=== PATIENT | male | born 1970 | race Caucasian/White ===

== ENCOUNTER 2020-05-21 09:30 | Inpatient (IN) ==
[2020-06-05 13:28] LABS: Appearance,Urine CLEAR; Bilirubin,Urine NEG (NEG); Color,Urine STRAW; Culture Indicated,Urine NO; Glucose,Urine (UA) NEGATIVE (NEG); Ketones,Urine NEG (NEG); Leukocyte Esterase,Urine NEG /uL (NEG); Nitrate,Urine NEG (NEG); Protein,Urine NEG (NEG); Urine Blood NEG mg/dL (<0.03); Urobilinogen,Urine NEG (NEG)
[2020-06-05 14:15] LABS: Basophils # (Auto) 0.04 K/mcL (0.00-0.30); Basophils % (Auto) 0.5 % (0.0-2.0); Eosinophils # (Auto) 0.09 K/mcL (0.00-0.70); Eosinophils % (Auto) 1.2 % (0.0-7.0); Granulocytes % (Auto) 59.4 % (38.0-78.0); Hematocrit 43.4 % (40.1-51.0); Hemoglobin 14.8 g/dL (13.7-17.5); Lymphocytes # (Auto) 2.32 K/mcL (1.50-4.80); Lymphocytes % (Auto) 30.8 % (15.5-49.0); Mean Cell Volume 90.2 fL (80.0-100.0); Mean Corpuscular HGB Conc 34.1 g/dL (31.0-36.0); Mean Platelet Volume 9.8 fL (7.4-10.4); Monocytes # (Auto) 0.61 K/mcL (0.10-0.90); Monocytes % (Auto) 8.1 % (1.0-12.0); Platelet Count 282 K/mcL (140-440); RBC 4.81 M/mcL (4.63-6.08); Red Cell Distribution Width 11.9 % (11.5-14.5); WBC 7.5 K/mcL (4.50-11.00)
[2020-06-05 14:24] LABS: Blood Urea Nitrogen 24 mg/dl (6-20); Calcium 9.9 mg/dl (8.6-10.4); Carbon Dioxide 24 mmol/L (22-30); Chloride 104 mmol/L (96-108); Glomerular Filtration Rate 99; Glucose 97 mg/dL (70-105)
[2020-06-05 14:42] LABS: Estimated Average Glucose(eAG) 111 mg/dL; Hemoglobin A1C 5.5 % HGB (4.0-6.0)
[2020-06-11] MEDS ORDERED: IPRATROPIUM/ALBUTEROL 3 ML AMPUL.NEB NEB PRN ×2 (05:00→18:00)
[2020-06-11] MEDS ORDERED: SCOPOLAMINE 1 PATCH PATCH TOPICAL PRN (05:00)
[2020-06-11] MEDS ORDERED: ceFAZolin 2 GM in DEXTROSE 5% IN WATER 50 ML IV SCH ×2 (06:00→21:00)
[2020-06-11] MEDS ORDERED: PREGABALIN 75 MG CAPSULE PO SCH (06:00)
[2020-06-11] MEDS ORDERED: CELECOXIB 200 MG CAPSULE PO SCH (06:00)
[2020-06-11] MEDS ORDERED: oxyCODONE 10 MG TAB.ER.12H PO SCH (06:00)
[2020-06-11] MEDS ORDERED: fentaNYL 250 MCG/5 ML VIAL IV ONE (15:17)
[2020-06-11] MEDS ORDERED: ROPIVACAINE HCL/PF 30 ML VIAL IJ ONE (15:17)
[2020-06-11] MEDS ORDERED: DEXAMETHASONE 10 MG/ML VIAL IV ONE (15:17)
[2020-06-11] MEDS ORDERED: TRANEXAMIC ACID 1,000 MG/10 ML VIAL IV ONE (15:17)
[2020-06-11] MEDS ORDERED: HYDROmorphone 1 MG/ML SYRINGE IV ONE (15:17)
[2020-06-11] MEDS ORDERED: KETAMINE 100 MG/ML ML IV ONE (15:17)
[2020-06-11] MEDS ORDERED: GLYCOPYRROLATE 0.2 MG/ML VIAL IV ONE (15:17)
[2020-06-11] MEDS ORDERED: PROPOFOL 200 MG/20 ML VIAL IV ONE (15:17)
[2020-06-11] MEDS ORDERED: SUCCINYLCHOLINE 20 MG/ML ML IV ONE (15:17)
[2020-06-11] MEDS ORDERED: LIDOCAINE HCL/PF 100 MG/5 ML SYRINGE IV ONE (15:17)
[2020-06-11] MEDS ORDERED: diphenhydrAMINE 50 MG/ML VIAL IV PRN (18:00)
[2020-06-11] MEDS ORDERED: LACTATED RINGERS 250 ML IV PRN (18:00)
[2020-06-11] MEDS ORDERED: MEPERIDINE 25 MG/ML SYRINGE IV PRN (18:00)
[2020-06-11] MEDS ORDERED: LACTATED RINGERS 1,000 ML IV SCH (18:00)
[2020-06-11] MEDS ORDERED: PROMETHAZINE 25 MG/ML VIAL IV PRN (18:00)
[2020-06-11] MEDS ORDERED: HYDROmorphone 0.5 MG/0.5 ML SYRINGE IV PRN (18:00)
[2020-06-11] MEDS ORDERED: ONDANSETRON 4 MG/2 ML VIAL IV PRN ×2 (18:00→20:46)
[2020-06-11] MEDS ORDERED: ACETAMINOPHEN 1,000 MG/100 ML BOTTLE IV ONE (18:00)
[2020-06-11] MEDS ORDERED: NALOXONE HCL 0.4 MG/ML VIAL IV PRN (18:00)
[2020-06-11] MEDS ORDERED: fentaNYL 100 MCG/2 ML VIAL IV PRN (18:00)
[2020-06-11] MEDS ORDERED: GUM MASTIC/STORAX/MSAL/ALCOHOL 1 DOSE DROPERETTE TOPICAL ONE (19:15)
--- NOTE | 2020-06-11 20:41 | Brief Operative Note ---
Brief Operative Note Date of procedure: 06/11/20 Pre-op diagnosis: left shoulder arthritis Post-op diagnosis: same Procedure: left total shoulder arthroplasty Grafts/Implants: Yes Anesthesia: GETA and regional Findings: severe OA Complications: none Surgeon: Teresa Wellington Estimated blood loss (cc): 150 Specimens Removed/Pathology: none sent Condition: stable Disposition: floor
[2020-06-11] MEDS ORDERED: HYDROmorphone 1 MG/ML SYRINGE IV PRN (20:46)
[2020-06-11] MEDS ORDERED: METHOCARBAMOL 750 MG TABLET PO PRN (20:46)
[2020-06-11] MEDS ORDERED: POLYETHYLENE GLYCOL 3350 17 GM PACKET PO PRN (20:46)
[2020-06-11] MEDS: LACTATED RINGERS 1,000 ML IV SCH (21:00)
[2020-06-11] MEDS ORDERED: ACETAMINOPHEN 1,000 MG/100 ML BOTTLE IV SCH (21:00)
[2020-06-11] MEDS ORDERED: DEXTROSE 31 GM ORAL.SUSP PO PRN (21:00)
[2020-06-11] MEDS ORDERED: DEXTROSE 50% 50 ML VIAL IV PRN (21:00)
[2020-06-11] MEDS: INSULIN LISPRO 1 UNIT/0.01 ML UNIT SQ SCH (22:11)
[2020-06-11] MEDS: DOCUSATE SODIUM 100 MG CAPSULE PO SCH (22:11)
[2020-06-11] MEDS: busPIRone 15 MG TABLET PO SCH (22:11)
[2020-06-11] MEDS: TOPIRAMATE 25 MG TABLET PO SCH (22:12)
[2020-06-11] MEDS: 0.9 % SODIUM CHLORIDE 10 ML SYRINGE IV SCH (22:12)
[2020-06-11] MEDS: GABAPENTIN 300 MG CAPSULE PO SCH (22:12)
[2020-06-11] MEDS: ceFAZolin 1 GM VIAL IV SCH (22:26)
[2020-06-11] MEDS: oxyCODONE HCL 5 MG TABLET PO PRN (23:41)
[2020-06-12] MEDS: oxyCODONE HCL 5 MG TABLET PO PRN ×3 (03:00→10:58)
[2020-06-12] MEDS: 0.9 % SODIUM CHLORIDE 10 ML SYRINGE IV SCH (05:22)
[2020-06-12] MEDS: ceFAZolin 1 GM VIAL IV SCH (05:53)
--- NOTE | 2020-06-12 06:06 | XRay Report ---
INDICATION: left shoulder replacement TECHNIQUE: AP and axillary views of the left shoulder COMPARISON: Preoperative evaluation dated 02/15/2020 FINDINGS: Status post left shoulder arthroplasty. Alignment is anatomic. There is a plate at the rotator footprint. There are skin king overlying the left shoulder. IMPRESSION: Status post left shoulder arthroplasty Interpreted and Authenticated by: Deonte Santana 06/12/20
--- NOTE | 2020-06-12 07:28 | Orthopedic Progress Note ---
SUBJECTIVE Subjective Patient information: Note initiated : 06/12/20 at 7:22 am Service Date, if different from initiated Date: [] Patient: Nicholas Raymundo 49 y/o M admitted on 06/11/20 for Left Total Shoulder Arthroplasty. Chief Complaint: [] Interval history: Narrative:No acute events overnight. Block is working. No chest pain/shortness of breath. Has been voiding. Constitutional Vitals: Vital Signs Temp Pulse Resp BP Pulse Ox 98.3 F 60 18 104/61 97 06/12/20 06:58 06/12/20 06:58 06/12/20 06:58 06/12/20 06:58 06/12/20 06:58 Period Temp Pulse Resp BP Sys/Soriano Pulse Ox Last 24 Hr 97.5 F-98.3 F 53-103 12-18 86-121/50-87 91-100 Intake and Output 06/11/20 06/12/20 06/12/20 21:59 05:59 13:59 Intake Total 350 Output Total 325 450 Balance 25 -450 Weight 214 lb 3 oz Intake & Output: Intake & Output 06/11/20 06/12/20 06/12/20 21:59 05:59 13:59 Intake Total 350 Output Total 325 450 Balance 25 -450 Weight 214 lb 3 oz Intake: Oral 350 Output: Void Amount 325 450 Other: Meal Jello Percent of Meal Consumed 100% Feeding Ability Independent Urine Appearance Clear Urine Color Bright Yellow General: awake, alert and oriented. Left shoulder: silver dressing in place. Dry without strikethrough. Block is working with decreased sensation throughout hand. can weakly make a fist. Difficulty making a flat hand. Hand is warm well perfused. OBJ DATA Labs CBC & Chem 7: 06/05/20 11:48 06/05/20 11:48 Meds: Medications Buspirone HCl (Buspar) 15 mg PO BID [facility] Last Admin: 06/11/20 22:11 Dose: Not Given Documented by: Dextrose (Dextrose 50%) 0 ml IV UD PRN PRN Reason: Hypoglycemia Diagnostic Test (Pha) (Accu-Chek) 1 each FS ACHS [facility] Last Admin: 06/11/20 22:10 Dose: 1 each Documented by: Docusate Sodium (Colace) 100 mg PO BID [facility] Last Admin: 06/11/20 22:11 Dose: Not Given Documented by: Gabapentin (Neurontin) 300 mg PO BID [facility] Last Admin: 06/11/20 22:12 Dose: Not Given Documented by: Glucose (Insta-Glucose) 15 gm PO PRN PRN PRN Reason: Hypoglycemia Hydromorphone HCl (Dilaudid) 0.5 mg IV Q15MIN PRN; Protocol PRN Reason: Per Pain Protocol Hydromorphone HCl (Dilaudid) 0 mg IV Q2HP PRN; Protocol PRN Reason: Per Pain Protocol Last Admin: 06/11/20 21:45 Dose: 0.5 mg Documented by: Lactated Ringer's (Lactated Ringers) 1,000 mls @ 75 mls/hr IV .[id number] [facility] Last Admin: 06/11/20 21:00 Dose: 75 mls/hr Documented by: Acetaminophen (Ofirmev) 1,000 mg in 100 mls @ 200 mls/hr IV Q8HP [facility]; Protocol Insulin Human Lispro (Humalog) 0 unit SQ ACHS [facility]; Protocol Last Admin: 06/11/20 22:11 Dose: Not Given Documented by: Lisinopril (Zestril) 5 mg PO DAILY [facility] Methocarbamol (Robaxin) 750 mg PO Q6HP PRN PRN Reason: Muscle Spasm Ondansetron HCl (Zofran) 4 mg IV Q4HP PRN; Protocol PRN Reason: Nausea And Vomiting Last Admin: 06/11/20 22:30 Dose: 4 mg Documented by: Oxycodone HCl (Roxicodone) 0 mg PO Q4HP PRN; Protocol PRN Reason: Per Pain Protocol Last Admin: 06/12/20 05:54 Dose: 1 mg Documented by: Lamotrigine [ (Lamictal Xr] 200 Mg) 1 dose PO DAILY [facility] Lisdexamfetamine [ (Vyvanse] 50 Mg)) 1 dose PO QDAY [facility] Polyethylene Glycol (Miralax) 17 gm PO DAILYP PRN PRN Reason: Constipation Rosuvastatin Calcium (Crestor) 5 mg PO QDAY [facility] Scopolamine (Transderm-Scop) 1 patch TOPICAL PREOP PRN PRN Reason: Nausea And Vomiting Sodium Chloride (Saline Flush) 10 ml IV Q8 [facility] Last Admin: 06/12/20 05:22 Dose: Not Given Documented by: Topiramate (Topamax) 25 mg PO BID [facility] Last Admin: 06/11/20 22:12 Dose: Not Given Documented by: A/P Assessment and plan (1) Shoulder arthritis: Status: Acute Comment: POD 1 s/p left total shoulder arthroplasty. -- Doing well this AM --- work with PT this AM -- monitor pain as block wears off this AM. ---- oral pain medications -- prophy: asa, IS, ambulation, abx -- dispo: likely d/c home later today Time Spent With Patient Time: Total time spent is greater than 50% in coordination of care (as documented) at patient's floor/unit and/or counseling patient:
--- NOTE | 2020-06-12 07:34 | Discharge Summary ---
Discharge Provider Provider Patient information: Note initiated : 06/12/20 at 7:29 am Service Date, if different from initiated Date: [] Patient: Nicholas Raymundo 49 y/o M admitted on 06/11/20 for Left Total Shoulder Arthroplasty. Chief Complaint: [left shoulder arthritis - left total shoulder replacement] Date of admission: 06/11/20 04:56 Discharge date: 06/12/20 Primary care physician: Mundo Ward COURSE Hospital Course Discharge diagnosis: left shoulder arthritis Time Spent with Patient Time attestation: Patient admitted on 11 Jun 2020 for planned left total shoulder arthroplasty. Procedure completed without complication and transferred to the floor for routine post operative recovery. Patient did well. Pain was controlled with a peripheral block along with oral pain medications. He tolerated an oral diet, able to void spontaneously, restarted on home medications and was hemodynamically stable. Physical Examination Exam Incision healing: Yes Incision draining: No Incision red: No Incision inflamed: No Clean and dry: Yes Weight bearing status: none Range of motion: defferred Discharge Instructions - TSA Patient Instructions Total Shoulder Protocol: Leave immobilizer in place except for bathing and ROM. Abduction pillow. Continue to wear sling until seen by physician. Codman Pendulum : These exercises use momentum produced by your body to move your shoulder joint. Bend your knees and shift your weight to your front leg, then back, allowing your arm to swing in the same directions. Using the same technique, alternately shift your weight between your right and left legs, allowing your arm to swing from side to side. These exercises are also performed in counterclockwise and clockwise circular motions. Typically these exercises are performed several times per day, for a set number repetitions or minutes, such as 20 times in a row or 5 minutes at a time. Leave dressing in place until your follow up with orthopedics unless it is becoming loose. OK to shower with dressing in place but do not submerge in water such as a bath or hot tub. If current dressing does become loose, do not get incision wet until your follow up with orthopedics. Ice your shoulder regularly for 15-20 minutes every 3-4 hours as it will help with swelling and pain. Discharge Plan Patient/Caregiver Discharge Instructions Activity: non-weight bearing Diet: Consistent Carbohydrate Instructions: Shoulder Arthroplasty (DC) Prescriptions: New methocarbamol 750 mg Tablet 750 mg PO Q6HP PRN (Reason: Muscle Spasm) Qty: 20 RF: 0 docusate sodium 100 mg Capsule 100 mg PO BID Qty: 60 RF: 0 gabapentin 300 mg Capsule 300 mg PO BID Qty: 30 RF: 0 aspirin 81 mg tablet,chewable 81 mg PO BID Qty: 60 RF: 0 acetaminophen [Tylenol Extra Strength] 500 mg tablet 1,000 mg PO Q8 Qty: 60 RF: 0 Continued Vyvanse 50 mg capsule 50 mg PO QDAY RF: 0 tadalafil [Cialis] 5 mg tablet 5 mg PO QDAY Qty: 30 RF: 3 metformin 500 mg tablet extended release 24 hr 500 mg PO QDAY Qty: 90 RF: 1 rosuvastatin [Crestor] 10 mg tablet 5 mg PO QDAY RF: 0 lamotrigine [Lamictal XR] 200 mg tablet extended release 24hr 200 mg PO DAILY RF: 0 buspirone 15 mg tablet 15 mg PO BID RF: 0 topiramate [Topamax] 25 mg tablet 25 mg PO BID RF: 0 lisinopril 5 mg tablet 5 mg PO DAILY RF: 0 Follow Up Plan Follow up with: Power Fay PA-C [Physician Snailer] - Patient Disposition: Home, Self-Care Rehab Potential: Good I certify that the patient requires SNF services: No Overall status at discharge: patient is progressing back to baseline Discharge Orders: Discharge Order (Routine); Ordered 06/12/20 Ordered By: Teresa Wellington Pending Pending Pending: Resuscitation Status Full Code Diet Regular Diet Start WedJun 11 1746 Buspirone HCl (Buspar) 15 mg PO BID [facility] Last Admin: 06/11/20 22:11 Dose: Not Given Documented by: VON Diagnostic Test (Pha) (Accu-Chek) 1 each FS ACHS [facility] Last Admin: 06/11/20 22:10 Dose: 1 each Documented by: VON Docusate Sodium (Colace) 100 mg PO BID [facility] Last Admin: 06/11/20 22:11 Dose: Not Given Documented by: VON Gabapentin (Neurontin) 300 mg PO BID [facility] Last Admin: 06/11/20 22:12 Dose: Not Given Documented by: VON Hydromorphone HCl (Dilaudid) 0 mg IV Q2HP PRN; Protocol PRN Reason: Per Pain Protocol Last Admin: 06/11/20 21:45 Dose: 0.5 mg Documented by: VON Lactated Ringer's (Lactated Ringers) 1,000 mls @ 75 mls/hr IV .[id number] [facility] Last Admin: 06/11/20 21:00 Dose: 75 mls/hr Documented by: VON Insulin Human Lispro (Humalog) 0 unit SQ ACHS [facility]; Protocol Last Admin: 06/11/20 22:11 Dose: Not Given Documented by: VON Ondansetron HCl (Zofran) 4 mg IV Q4HP PRN; Protocol PRN Reason: Nausea And Vomiting Last Admin: 06/11/20 22:30 Dose: 4 mg Documented by: VON Oxycodone HCl (Roxicodone) 0 mg PO Q4HP PRN; Protocol PRN Reason: Per Pain Protocol Last Admin: 06/12/20 05:54 Dose: 1 mg Documented by: Admin: 06/12/20 03:00 Dose: 5 mg Documented by: Admin: 06/11/20 23:41 Dose: 5 mg Documented by: VON Sodium Chloride (Saline Flush) 10 ml IV Q8 [facility] Last Admin: 06/12/20 05:22 Dose: Not Given Documented by: Admin: 06/11/20 22:12 Dose: Not Given Documented by: VON Topiramate (Topamax) 25 mg PO BID [facility] Last Admin: 06/11/20 22:12 Dose: Not Given Documented by: VON Shift Summary 06/12/20 04:06 Shift Summary by Dipika Burnham Pt returned from surg around 2100. Pt is up with SBA to bathroom voiding via urinal. Voided 325 with PRV of 480 at 0330. Pt taking Oxy one tab x2 for pain. Had nausea early on which resolved with Zofran. Pt has tolerated applesauce, jell-o and water at this time. IV infusing. Last abo due at 0600. Immobilizer and SCD's in place. Will update with verbal report. Initialized on 06/12/20 04:06 - END OF NOTE
--- NOTE | 2020-06-12 07:56 | Operative Note ---
DATE OF OPERATION: 06/11/2020 PREOPERATIVE DIAGNOSIS: Left shoulder [id number] osteoarthritis. POSTOPERATIVE DIAGNOSIS: Left shoulder qhyy-zu-ahnz osteoarthritis. PROCEDURE PERFORMED: 1. Left total shoulder arthroplasty. 2. Left shoulder biceps tenodesis. SURGEON: Teresa Wellington M.D. HOURLY SHIFT MANAGER: Power Fay PA-C. This provider's expertise and technical skill were required throughout the case. The PA assisted with preoperative coordination, intraoperative retraction, wound closure, dressing and splint application, as well as postoperative documentation and care coordination. ANESTHESIA: General with peripheral nerve block. IV FLUIDS: 2800 mL lactated ringer. ESTIMATED BLOOD LOSS: 150 mL TOURNIQUET TIME: Non-applicable. ANTIBIOTICS: 2 grams Ancef, redosed x1 at the end of the case. IMPLANTS: 1. 1/4 lock glenoid with a 25-degree posterior augment size large. 2. Humeral head is a 52 x 19 mm with a size 3 nucleus. PATHOLOGY: None; however, we excised and discarded the proximal portion of the biceps tendon itself. INTRAOPERATIVE COMPLICATIONS: None apparent. INDICATIONS: The patient is a 49-year-old male who has bilateral severe [id number] shoulder osteoarthritis. He has been treated in conservative manner for quite some time; however, his function continues to decrease and his pain is increasing, affecting his sleeping as well as daily functions. We discussed at length options for treatment to include total shoulder arthroplasty. I did discuss, given the degree of bone deformity, I would do a template version for him and reviewed this with him at length. We discussed the risks of the surgery as well as the postoperative expectations and outcomes. Given this, he does want to proceed with surgery. DESCRIPTION OF PROCEDURE: The patient was brought to the preoperative holding area. Site was verified with marker with patient's input. He was subsequently taken back to the operating room where he underwent successful anesthesia via endotracheal tube. He was placed in a beach chair position with bilateral lower extremity sequential compression device in place. His right upper extremity was draped across his lap and padded and secured. The left upper extremity was then prepped and draped in the usual sterile fashion with ChloraPrep. A surgical timeout was performed to verify patient identity, correct procedure being performed, and correct extremity being operated on, and everybody was in agreement. I created a deltopectoral incision from the coracoid process distally along the deltopectoral interval approximately 10 to 12 cm in overall length. Skin was sharply incised. Hemostasis was obtained. The deltopectoral interval was identified and bluntly dissected down to the anterior aspect of the humerus. The deltopectoral fascia was identified. There was a significant amount of synovitis throughout the anterior aspect of the shoulder including bursitis. The bicipital groove was identified. I did bluntly develop the subacromial and subdeltoid recess, placed the deltoid retractor to expose the proximal humerus. I also placed a Hohmann retractor over top of the coracoid to aid in exposure. The biceps tendon was identified at the superior border of the pectoralis major tendon. It was tagged with an Ethibond suture and then truncated sharply. The biceps groove was then opened into and along the rotator interval. Hemostasis was obtained throughout the procedure. I did cauterize the Irish vessels at the inferior border of the subscapularis tendon as well. At this point, tenotomized the biceps tendon from the proximal intra articular porion and discarded this portion. The subscap osteotomy was created and the full sleeve was elevated off the lesser tuberosity with a small bony component. This was then secured with Ethibond suture as well. We performed an interval release as well as an anterior capsular release to mobilize the subscap tendon itself. Once this was complete, the head was exposed with external rotation and large osteophytes were identified. The rotator cuff tendons were intact and I placed additional spiked Hohmann retractor over the top of the humeral head as well as along the inferior portion of the head to further expose its entirety. The osteophytes were excised with an osteotome as well as a rongeur. I marked the anatomic neck and then utilizing an oscillating saw cut the head along the anatomic neck. This was then measured on the back table, which measured to be 52 which was our templated size as well. I did place the nucleus sizing device which appeared to be a size 3 instead of a size 2 with no overhang. The central pin was then placed bicortical. Planer were utilized until the surface was flush. We then drilled over the central pin and placed the Narcisa nucleus device. The humeral head cover was placed as well to protect it. At this point, we placed a retractor into the joint over the posterior edge of the glenoid. The labrum was completely excised 360 degree around the glenoid to expose the glenoid surface. I had to release the superior portion of the pectoralis major tendon as well to aid in exposure, given the significant retroversion of the glenoid. The inferior glenoid did expose as well just to release a bit of the tricep to ensure complete release. This did allow adequate access to the glenoid. I placed a retractor anteriorly on the anterior glenoid as well as one additionally into the superior glenoid to gambreler helper with retraction. At this point, utilizing our patient-specific instrumentation guide, we placed the guide in the central location. Initially, I reamed with the traditional reamer to take off the anterior edge, which the templated to removed approximately 2 mm at the central portion which was complete. Then, utilizing the offset reamer set at 25 degrees we reamed the remainder of surface to make it flush, which I verified visually and with palpation. There was a smooth transition. Once this was complete, I placed the trial over the guidewire which sat flush. I did place an antirotational pin as well as at the index placement of the wire. The three pegs were then reamed as well and then the central hole was drilled. This was all within the glenoid vault. The wound was copiously irrigated with pulse lavage and irrigation. I did use IrriSept throughout the case as well. With this exposed, I then prepared the glenoid for final implantation, which was a size 40 large 25 degree augmenting glenoid. The surface was cleaned and dried. We placed cement in the superior and two inferior pegs and DBX on the central past of the glenoid. This was then placed and impacted and held until cement was hard. This was secured and once this was complete, the humeral head was brought out through the wound again utilizing the deltoid retractor as well as a blunt Hohmann. The surface was then irrigated and pulse lavaged, cleaned and dried. We placed the final nucleus implant size 3 and then impacted a size 52 x 19 mm metal head. Prior to doing this, I did trial with the implant which did demonstrate good overall soft tissue balance with a translated posteriorly approximately 50 to 60% with good bounce back. Once this was impacted, again, the wound was copiously irrigated with IrriSept, as well as 0.035% Betadine solution, we let it soak and then pulse lavaged this out and irrigated with normal saline. The shoulder was placed in neutral position, slightly internal rotation. We drilled three holes within the bicipital groove at the inferior, middle and superior aspects of the lesser tuberosity osteotomy. Utilizing #2 FiberWire, passed the sutures medial to the osteotomy of the subscap itself to secure the tendon in a Ned-Reese configuration and also placed a suture in order to reduce this back to its footprint. Once this was complete, an inferior suture was then passed through the inferior hole and out through the metaphyseal cortex of the proximal humerus. The corresponding suture as well as the inferior suture of the next one was passed through the central hole and passed through the lateral metaphyseal cortex of the humerus again. The superior hole had one suture from the most proximal suture passed out through the lateral metaphyseal cortex and the superior portion of the suture was passed through the anterior edge of the supraspinatus to restore the height of the subscap. These were then placed through a Synthes button plate and secured sequentially starting at the inferior margin moving superiorly with the arm in neutral position as well as pulling our initial traction sutures to hold the osteotomy in a reduced fashion. These were then tied sequentially. We placed one 2-0 Ethibond suture within the rotator interval at the lateral aspect to close this down as well as to restore the competence of the superior subscap and anterior supraspinatus. I did close down the inferior subperiosteal sleeve as well as 2-0 Ethibond. The biceps tenodesis as well as the superior border of the pectoralis major tendon was repaired with 2-0 Ethibond as well. The wound was then again copiously irrigated with normal saline. The deltopectoral interval was closed with 2-0 Vicryl in running fashion, subcutaneous tissue with 3-0 Vicryl and then subcutaneous 3-0 Monocryl and Steri-Strips with king. Shoulder was then cleaned and dried. A silver dressing was applied. The patient awoke from anesthesia and transferred to the PACU in stable condition. POSTOPERATIVE PLAN: The patient will be admitted overnight and ensure adequate pain control and likely discharge tomorrow. DLCj:jamarcus Job ID: [id number] Doc ID: [id number] Teresa VITALE
[2020-06-12] MEDS: INSULIN LISPRO 1 UNIT/0.01 ML UNIT SQ SCH (08:11)
[2020-06-12] MEDS: TOPIRAMATE 25 MG TABLET PO SCH (08:11)
[2020-06-12] MEDS: GABAPENTIN 300 MG CAPSULE PO SCH (08:12)
[2020-06-12] MEDS: DOCUSATE SODIUM 100 MG CAPSULE PO SCH (08:12)
[2020-06-12] MEDS: busPIRone 15 MG TABLET PO SCH (08:13)
[2020-06-12] MEDS ORDERED: LISDEXAMFETAMINE 50 MG PO SCH (09:00)
[2020-06-12] MEDS ORDERED: LISINOPRIL 5 MG TABLET PO SCH (09:00)
[2020-06-12] MEDS ORDERED: ROSUVASTATIN 10 MG TABLET PO SCH (09:00)
[2020-06-12] MEDS ORDERED: LAMOTRIGINE 200 MG PO SCH (09:00)
[2020-06-12] MEDS: LACTATED RINGERS 1,000 ML IV SCH (11:00)
== END 2020-06-12 12:25 | disposition home or self-care (01) | DRG 483 ==
LOC: MEDSUR 06-11 04:56
PROVIDERS: ADMIT Orthopaedic Surgery; ATTEND Orthopaedic Surgery